=== PATIENT | female | born 1950 | race Two or more races ===

== ENCOUNTER 2018-08-09 07:42 | Outpatient (CLI) | payer OTHER ==
[~2018-08-09 07:42] MED LIST: ASA81 MG PO; MUPIROCIN0.9 GM TP; TOPROL XL25 M1 PO; VASOTEC20 M1 PO; ZOCOR20 MG PO; [UNRECOGNIZED DRUG - OTHER]
== END 2018-08-09 07:46 | disposition home or self-care (01) ==
LOC: SONOGRAMA 07:42
DX: E04.1 Nontoxic single thyroid nodule (principal)